=== PATIENT | female | born 1980 | race Two or more races ===

== ENCOUNTER → 2017-10-31 | Outpatient (CLI) | payer OTHER | LOC: CIMAGING 08:13 | PROVIDERS: ATTEND Physician Assistant | DX: K80.20 Calculus of gallbladder without cholecystitis without obstruction (principal) | CPT/HCPCS: 76700-PO ==

== ENCOUNTER 2017-11-22 10:11 | Day surgery (SDC) | payer OTHER ==
--- NOTE | 2017-11-22 10:40 | PDHPUP ---
History & Physical Update H&P update statement: This history and physical update is based on an assessment of the patient which was completed after admission or registration (within 24 hours), but prior to the surgery/procedure. H&P update: H&P reviewed & patient examined, no change in patient's condition since H&P completed
[2017-11-22] MEDS ORDERED: LR 1,000 ML IV ONE (10:52)
[2017-11-22] MEDS ORDERED: BUPIVACAINE 0.25% 30 ML SDV ONE (11:05)
[2017-11-22] MEDS ORDERED: ceFAZolin 1 GM/5 ML SYR ONE (11:06)
[2017-11-22] MEDS ORDERED: HEPARIN 1000 UNIT/1 ML MDV ONE (11:06)
[2017-11-22] MEDS ORDERED: MIDAZOLAM 2 MG/2 ML VIAL IVP ONE (11:58)
[2017-11-22] MEDS ORDERED: SCOPOLAMINE HYDROBROMIDE 1 MG/3 DAYS PATCH TD ONE ×2 (11:58→12:04)
--- NOTE | 2017-11-22 11:59 | PDANEPAE ---
ANE Past Medical History - Cardiovascular History Hx Hypertension: No Hx Arrhythmias: No Hx Chest Pain: No Hx Coronary Artery / Peripheral Vascular Disease: No Hx CHF / Valvular Disease: No Hx Palpitations: No - Pulmonary History Hx COPD: No Hx Asthma/Reactive Airway Disease: No Hx Recent Upper Respiratory Infection: No Hx Oxygen in Use at Home: No Hx Sleep Apnea: No - Neurologic History Hx Cerebrovascular Accident: No Hx Seizures: No Hx Dementia: No - Endocrine History Hx Diabetes: No Obesity: no - Renal History Hx Renal Disorders: No - Liver History Hx Hepatic Disorders: No - Neurological & Psychiatric Hx Hx Neurological and Psychiatric Disorders: Yes Neurological / Psychiatric History Comment: slight depression, on meds. Migraines, on Midrin, Fioricet. Insomnia, on prn hydroxazyne - Cancer History Hx Cancer: No - Congenital Disorder History Hx Congenital Disorders: No - GI History GERD: mild Hx Gastrointestinal Disorders: Yes Gastrointestinal History Comment: gall bladdere - Other Health History Other Health History: none - Chronic Pain History Chronic Pain: No - Surgical History Prior Surgeries: appy 08/2016. jaw surgery 207 ANE Review of Systems Review of Systems: - Exercise capacity METS (RN): 4 METS ANE Patient History - Allergies Allergies/Adverse Reactions: No Allergies [NKDA] Allergy (Verified 11/22/17 10:43) NKDA Allergy (Uncoded 11/22/17 10:43) - NPO status NPO Since - Liquids (Date): 11/21/17 NPO Since - Liquids (Time): 20:30 NPO Since - Solids (Date): 11/21/17 NPO Since - Solids (Time): 20:30 - Anes Hx Anes Hx: post operative nausea - Smoking Hx Smoking Status: Never smoked Marijuana use: No - Alcohol Use Alcohol Use: Other (3 drinks/month) - Family Anes Hx Family Anes Hx: none Family Hx Anesthesia Complications: none ANE Labs/Vital Signs - Vital Signs Blood Pressure: 96/67 Heart Rate: 69 Respiratory Rate: 16 O2 Sat (%): 99 Height: 154.94 cm Weight: 41.73 kg ANE Physical Exam - Airway Neck exam: FROM Mallampati Score: Class 1 Mouth exam: normal dental/mouth exam - Pulmonary Pulmonary: clear to auscultation - Cardiovascular Cardiovascular: regular rate and rhythym ANE Anesthesia Plan Anesthesia Plan: general endotracheal anesthesia
[2017-11-22] MEDS ORDERED: MIDAZOLAM 2 MG/2 ML VIAL ONE (12:04)
[2017-11-22] MEDS ORDERED: PROPOFOL 200 MG/20 ML VIAL ONE (12:09)
[2017-11-22] MEDS ORDERED: fentaNYL 250 MCG/5 ML INJ ONE (12:10)
[2017-11-22] MEDS ORDERED: DEXAMETHASONE 4 MG/ML VIAL ONE (12:10)
[2017-11-22] MEDS ORDERED: ROCURONIUM 50 MG/5 ML VIAL ONE (12:10)
[2017-11-22] MEDS ORDERED: PHENYLEPHRINE HCL 100 MCG/ML SYR ONE (12:23)
[2017-11-22] MEDS ORDERED: ceFAZolin 1 GM VIAL ONE (12:27)
[2017-11-22] MEDS ORDERED: ESMOLOL HCL 100 MG/10 ML VIAL IV ONE (12:43)
[2017-11-22] MEDS ORDERED: ONDANSETRON 4 MG/2 ML VIAL ONE (12:46)
[2017-11-22] MEDS ORDERED: GLYCOPYRROLATE 0.2 MG/1 ML VIAL ONE (12:49)
[2017-11-22] MEDS ORDERED: NEOSTIGMINE METHYLSULFATE 5 MG/5 ML SYR ONE (12:49)
[2017-11-22] MEDS ORDERED: oxyCODONE IR 5 MG TAB PO PRN (12:58)
[2017-11-22] MEDS ORDERED: HYDROCODONE/APAP 5/325 TAB PO PRN (12:58)
[2017-11-22] MEDS ORDERED: fentaNYL 100 MCG/2 ML INJ IVP PRN (12:58)
[2017-11-22] MEDS ORDERED: ONDANSETRON 4 MG/2 ML VIAL IVP PRN (12:58)
[2017-11-22] MEDS ORDERED: NALOXONE HCL 0.4 MG/ML INJ IVP PRN (12:58)
--- NOTE | 2017-11-22 13:16 | POSTOPPROG ---
Post Op Note Date of Operation: 11/22/17 Surgeon: Johnnie Buchanan Service Counter Cashier: Anahy Reddy Anesthesiologist: Nikolai Jackson Anesthesia: GET(General Endotracheal) Pre-op Diagnosis: cholelithiasis, cholecystitis Post-op Diagnosis: same Procedure: lap roger Findings: small stones, minimal inflammation Inf/Abcess present in the surg proc area at time of surgery?: No EBL: Minimal Complications: none Specimen(s): gallbladder to pathology
[2017-11-22] MEDS ORDERED: HYDROmorphONE/DILAUDID 1 MG/ML INJ ONE (13:17)
[2017-11-22] MEDS: HYDROmorphONE/DILAUDID 1 MG/ML INJ IVP PRN ×3 (13:19→13:45)
[2017-11-22] MEDS ORDERED: oxyCODONE IR 5 MG TAB ONE (13:47)
[2017-11-22 14:44] VITALS: BP 89/54
--- NOTE | 2017-11-22 15:50 | POSTANESTH ---
Post Anesthetic Evaluation Cardiovascular Status: Normal, Stable Respiratory Status: Normal, Stable Level of Consciousness/Mental Status: Can Participate in Eval Pain Control: Adequate, Prn Tx Ordered Nausea/Vomiting Control: Adequate, Prn Tx Ordered Complications Possibly Related to Anesthesia: None Noted
--- NOTE | 2017-11-26 19:46 | GOP ---
[f rep st] OPERATIVE REPORT DATE OF OPERATION: 11/22/2017 SURGEON: Johnnie Buchanan MD PERINATAL INSTRUCTOR: None. PREOPERATIVE DIAGNOSIS: Cholelithiasis and cholecystitis. POSTOPERATIVE DIAGNOSIS: Cholelithiasis and cholecystitis. PROCEDURE PERFORMED: Laparoscopic cholecystectomy. FINDINGS: The patient was found to have a relatively benign-appearing gallbladder except that it was packed with multiple BB-sized stones. Ducts were normal. DESCRIPTION OF PROCEDURE: The patient was taken to the operating room where she received a satisfact ory general endotracheal anesthesia. She was placed in supine position, and prepped and draped in th e usual sterile fashion. A periumbilical incision was made. A Veress needle was inserted. Pneumope ritoneum was established. Trocar was introduced. Laparoscope introduced. Good visualization was ob tained. Three other trocars were placed in the upper abdomen under direct vision. The gallbladder w as elevated up. Adhesions were taken down. The cystic triangle was carefully dissected free and exp osed. A good clear view was obtained, and the cystic artery and cystic duct were dissected free and multiply hemoclipped and divided with care to avoid injury to the common duct which was clearly visua lized. The peritoneum of the gallbladder was incised. The gallbladder was dissected free from the b ed and hepatic fossa and extracted through the upper midline port site. Hemostasis was assured. Tro cars were removed under direct vision. Trocar sites were closed with 0 Vicryl for the fascia, 4-0 Mo nocryl subcuticular stitch for the skin. All layers were infiltrated with 0.5% Marcaine. Blood loss was negligible. She was taken to recovery room in good condition. Copy requested to: ODIN Miller /[id number]/MODL
== END 2017-11-22 15:30 | disposition home or self-care (01) ==
LOC: FSGY 10:11
PROVIDERS: ATTEND Surgery
PROC: 0FT44ZZ Resection of Gallbladder, Percutaneous Endoscopic Approach (ICD-10-PCS; principal; 2017-11-22 11:30)
DX: K80.10 Calculus of gallbladder with chronic cholecystitis without obstruction (principal)
CPT/HCPCS: J0690; J1100; J1170; J2250; J2370; J2405; J2704; J2710; J3010